=== PATIENT | female | born 2000 | race African-American/Black ===

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

== ENCOUNTER 2020-03-23 12:25 | Emergency (ER) | payer MEDICAID, OTHER ==
[~2020-03-23] VITALS: Ht 154.9 cm; Wt 75.0 kg
--- NOTE | 2020-03-23 12:38 | PHYS DOC ---
Past Medical History Past Medical History: No Pertinent History Past Surgical History: No Surgical History Smoking Status: Current Every Day Smoker Alcohol Use: None Drug Use: Marijuana General Adult EDM: Chief Complaint: GENERALIZED BODY ACHES HPI: HPI: Patient is a 19 year old female who presents with complaints that her employer sent her here to have a Covid test done and a work excuse stating that she can return to regular work. Patient states that over the last couple of days she has had some generalized body aches with a dry cough stating she felt just a little ill however not ill enough to be seen by a physician. Patient states that her employer became concerned because she was coughing at work and sent her home so that she could obtain a medical evaluation. Patient states that she has not been in contact with anybody that has a Covid 19 virus as far she is aware of, patient denies any recent fevers headaches sore throat new loss of taste or new loss of smell nausea vomiting diarrhea congestion or runny nose. Patient states her only symptoms are generalized body aches with a nonproductive cough for the past 2 days. Patient denies any pain with her cough, denies any shortness of breath, denies any chest pains. Patient denies fever or chills, any vision changes, any abdominal pains, denies urinary problems or STI concerns. Patient denies any pain in her back or pain in her joints, however states that she just feels overall a little achy. Patient states she is unable to rate her pain on a 1-10 pain scale as she describes that she is not really having pain and only is having an achy feeling. Patient denies any rashes to her skin's, any headaches or sensory changes. Patient denies any increased urination or increased thirst. Patient denies any swelling of her glands. Patient denies any recent depressions or anxieties denies homicidal or suicidal ideation. Patient states that no one else living at her home has the same symptoms that she. Patient states that her is feeling fine, and her [id number] child has no symptoms or does not appear ill to her. Patient states that the reason she is here today is to obtain a work note stating that she is okay and can return back to regular work. Review of Systems: Review of Systems: Constitutional: Denies fever or chills. Complains of generalized body aches Eyes: Denies change in visual acuity. HENT: Denies nasal congestion or sore throat. Respiratory: Reports a dry nonproductive cough, denies shortness of breath or any difficulties breathing. Cardiovascular: Denies chest pain or edema. GI: Denies abdominal pain, nausea, vomiting, constipation or diarrhea. : Denies dysuria. Denies STI concerns Musculoskeletal: Denies back pain or joint pain. Integument: Denies rash. Neurologic: Denies headache, focal weakness or sensory changes. Endocrine: Denies polyuria or polydipsia. Lymphatic: Denies swollen glands. Psychiatric: Denies depression or anxiety. Denies homicidal or suicidal ideation. Heart Score: Risk Factors: Risk Factors: DM, Current or recent (<one month) smoker, HTN, HLP, family history of CAD, obesity. Risk Scores: Score 0 - 3: 2.5% MACE over next 6 weeks - Discharge Home Score 4 - 6: 20.3% MACE over next 6 weeks - Admit for Clinical Observation Score 7 - 10: 72.7% MACE over next 6 weeks - Early Invasive Strategies Current Medications: Patient states she does not take any prescription medications at home. Patient states she occasionally takes [id number] Tylenol and/or ibuprofen. Patient states she has not taken any medications for the past few weeks. Allergies: Allergies: Allergies Coded Allergies Type Severity Reaction Last Updated Verified No Known Drug Allergies 06/07/15 No Physical Exam: PE: Constitutional: Well developed, well nourished, no acute distress, non-toxic appearance. HENT: Normocephalic, atraumatic, bilateral external ears normal, oropharynx moist, no oral exudates, nose normal. Eyes: PERRLA, EOMI, conjunctiva normal, no discharge. Neck: Normal range of motion, no tenderness, supple, no stridor. Cardiovascular:Heart rate regular rhythm, no murmur, heart sounds S1-S2 auscultation. Lungs & Thorax: Bilateral breath sounds clear to auscultation all lung nolen. Abdomen: Bowel sounds normal, soft, no tenderness, no masses, no pulsatile masses. Skin: Warm, dry, no erythema, no rash. Back: No tenderness, no CVA tenderness. Extremities: No tenderness, no cyanosis, no clubbing, ROM intact, no edema. Neurologic: Alert and oriented X 3, normal motor function, normal sensory function, no focal deficits noted. Psychologic: Affect normal, judgement normal, mood normal. EKG: EKG: [] Radiology/Procedures: Radiology/Procedures: [] Course & Med Decision Making: Course & Med Decision Making Pertinent Labs and Imaging studies reviewed. (See chart for details) 19-year-old female presented to the emergency department requesting a work excuse to return to work. However patient states that she was sent home because they noticed she was having a cough, patient states that she was feeling some generalized body aches and had this cough for the past 2 days. Patient is requesting a note stating she does not have the COVID-19 virus and should return to regular work. Discussed with patient that we would obtain a COVID-19 test today. However the results would not be back for a couple of days. Patient would be given a work excuse saying that her Covid results are pending. Patient was given instructions on how to obtain her results. Patient's physical exam was negative not concerning for infectious process. Patient's lung sounds are clear to auscultation, patient did not cough during physical examination. Patient's vital signs taken during physical examination were and oral temp of 98.1, heart rate was 65 per palpation, O2 saturation 100%, respirations 16 and unlabored, blood pressure taken on the right upper extremity via noninvasive blood pressure machine was 109/63. Discussed with patient concerns for viral syndrome, patient was amendable to obtaining a Covid 19 virus test along with a flu swab. Patient will be discharged home, discussed with patient taking [id number] Tylenol and/or Motrin for generalized aches pains and fever. Patient is return to the emergency department for worsening symptoms or other concerns. Patient had no further questions or concerns. Patient discharged home without incident. Dragon Disclaimer: Dragon Disclaimer: This electronic medical record was generated, in whole or in part, using a voice recognition dictation system. Departure Departure Impression: Primary Impression: Person under investigation for COVID-19 Additional Impression: Viral syndrome Disposition: 01 DC HOME SELF CARE/HOMELESS Condition: GOOD Referrals: NO PCP (PCP) Patient Instructions: Viral Syndrome Additional Instructions: You have been tested for or diagnosed with COVID-19. It is an infection caused by a new type of coronavirus. COVID-19 will cause cold-like or mild flu symptoms in most. It can cause more severe symptoms like problems breathing in some. There is no treatment for COVID-19. The body will clear the infection over time. Self-care will help to ease discomfort. Steps to Take: Self-Care Rest as needed. Healthy habits may help you feel better. Steps include: Choose healthy foods including fruits and vegetables. Drink water throughout the day. Get plenty of sleep each night. If you smoke, try to quit. It may ease breathing. Avoid alcohol. Keep Others Healthy The virus can spread to others. Droplets are released every time you sneeze or cough. The droplets can get into the mouth, nose, or eyes of people near you and lead to infection. To lower the chances of spreading COVID-19 to others: Stay at home until your doctor has said it is safe to leave. If you tested positive this will mean staying isolated until both of the following are true: At least 7 days have passed since the start of illness. You are free of fever for at least 72 hours without the use of medicine. During this time: - Avoid public areas, events, or transportation. Do not return to work or school until your doctor has said it is safe to do so. - Call ahead if you need to go to a medical center. Let them know you may have COVID-19. It will help them guide you where to go. They may also ask you to wear a facemask when you come to the office. - If you call for emergency medical services, let them know you may have COVID- 19. While at home: - Try to avoid close contact with others. Stay about 6 feet away. - If possible, spend most of your time in a separate room from others. - Use a face mask if you will be in close contact with others such as sharing a room or vehicle. - Have someone wipe down common surfaces in the home. Use household compressed gas tester every day on areas like doorknobs, counters, or sinks. - Cough or sneeze into a tissue. Throw the tissue away right after use. If a tissue is not available, cough or sneeze into your elbow. - Wash your hands often. Wash them after sneezing or coughing. Use soap and water and wash for at least 20 seconds. Alcohol based hand drain cleaner plumber can be used if soap and water is not available. - Do not prepare food for others. Avoid sharing personal items like forks, spoons, or toothbrushes. - Avoid close contact with pets while you are sick. There is no evidence of the virus passing to pets. This is a safety step until more is known about this virus. Isolation can be frustrating. Social interaction can help. Keep in touch with friends and family through phone and tech options. You can still interact with others in your home, just keep a safe distance of about 6 feet. Follow-up: Your doctors office will check in with you to see if there are any changes in your health. You may be asked to keep track of symptoms to share with them. They will also let you know when you are clear to be in public again. Problems to Look Out For: Contact your doctor if your recovery is not going as you expect. Get emergency care if you have problems such as: - Trouble breathing - Nonstop chest pain or pressure - Changes in awareness, confusion, or problems waking - Lips or face have bluish color - Worsening of symptoms If you think you have an emergency, call for emergency medical services right away. As taken from [employer] I have given a work excuse for 2 days pending the Covid result, if positive our infectious disease department will contact you at the phone number you left with registration, if negative you will not be contacted, you can contact medical records here at [facility] to obtain your Covid test results. Continue to use Tylenol and/or Motrin for generalized body aches and viral syndrome symptoms. Return to the emergency department for worsening symptoms or other concerns. AMY TAVARES APRN Mar 23, 2020 12:38
[2020-03-23 13:09] VITALS: BP 118/69
[2020-03-23 13:45] LABS: INFLUENZA A PATIENT NEGATIVE (NEGATIVE); INFLUENZA B PATIENT NEGATIVE (NEGATIVE)
--- NOTE | 2020-03-25 10:33 | NUR ---
IP: Attempted to call test results. No answer. Left a voicemail to return the call.
== END 2020-03-23 13:16 | disposition home or self-care (01) ==
LOC: ER 12:25
DX: B34.9 Viral infection, unspecified (principal); Z20.828 Contact with and (suspected) exposure to other viral communicable diseases; F17.200 Nicotine dependence, unspecified, uncomplicated
CPT/HCPCS: 87804; 99283; C9803; U0003

== ENCOUNTER 2020-04-19 15:47 | Emergency (ER) | payer OTHER ==
[~2020-04-19] VITALS: Ht 154.9 cm; Wt 58.1 kg
[2020-04-19 16:40] VITALS: BP 116/80
[2020-04-19] MEDS ORDERED: PROCHLORPERAZINE 10 MG/2 ML VIAL. IV ONE (17:15)
[2020-04-19] MEDS ORDERED: IV NORMAL SALINE 1000ML BAG 1,000 ML IV ONE (17:15)
[2020-04-19] MEDS ORDERED: KETOROLAC 30 MG/ML VIAL. IVP ONE (17:15)
--- NOTE | 2020-04-19 17:18 | PHYS DOC ---
Past Medical History Past Medical History: No Pertinent History Past Surgical History: No Surgical History Smoking Status: Current Every Day Smoker Alcohol Use: None Drug Use: Marijuana General Adult EDM: Chief Complaint: FEVER HPI: HPI: Patient is a 19 year old female who presents with fever, epigastric pain, nausea, vomiting, headache last night. States she has not taken any medication. She rates her headache and her dull aching abdominal pain a 10 out of 10. Denies any past medical history but she is a smoker. She does use marijuana. Patient denies chest pain, cough, shortness of air, diarrhea, constipation, urinary symptoms, back pain, dizziness, vision changes, focal weakness, numbness or tingling. Review of Systems: Review of Systems: Constitutional: + fever or chills. [] Eyes: Denies change in visual acuity. [] HENT: Denies nasal congestion or sore throat. [] Respiratory: Denies cough or shortness of breath. [] Cardiovascular: Denies chest pain or edema. [] GI: +abdominal pain, +nausea, +vomiting, bloody stools or diarrhea. [] : Denies dysuria. [] Musculoskeletal: Denies back pain or joint pain. [] Integument: Denies rash. [] Neurologic: + headache, denies focal weakness or sensory changes. [] Endocrine: Denies polyuria or polydipsia. [] Lymphatic: Denies swollen glands. [] Psychiatric: Denies depression or anxiety. [] Heart Score: Risk Factors: Risk Factors: DM, Current or recent (<one month) smoker, HTN, HLP, family history of CAD, obesity. Risk Scores: Score 0 - 3: 2.5% MACE over next 6 weeks - Discharge Home Score 4 - 6: 20.3% MACE over next 6 weeks - Admit for Clinical Observation Score 7 - 10: 72.7% MACE over next 6 weeks - Early Invasive Strategies Current Medications: Current Medications Medications (Trade) Dose Ordered Sig/Taye Start Time Stop Time Status Last Admin Dose Admin Ketorolac Tromethamine (Toradol 30mg Vial) 30 mg 1X ONCE 04/19/20 17:15 04/19/20 17:16 Prochlorperazine Edisylate (Compazine) 10 mg 1X ONCE 04/19/20 17:15 04/19/20 17:16 Sodium Chloride 1,000 ml @ 1,000 mls/hr 1X ONCE 04/19/20 17:15 04/19/20 18:14 Allergies: Allergies: Allergies Coded Allergies Type Severity Reaction Last Updated Verified No Known Drug Allergies 06/07/15 No Physical Exam: PE: Constitutional: Well developed, well nourished, no acute distress, non-toxic appearance. [] HENT: Normocephalic, atraumatic, bilateral external ears normal, oropharynx moist, no oral exudates, nose normal. [] Eyes: PERRLA, EOMI, conjunctiva normal, no discharge. [] Neck: Normal range of motion, no tenderness, supple, no stridor. [] Cardiovascular:Heart rate regular rhythm, no murmur [] Lungs & Thorax: Bilateral breath sounds clear to auscultation [] Abdomen: Bowel sounds normal, soft, epigastric tenderness, no masses, no pulsatile masses. [] Skin: Warm, dry, no erythema, no rash. [] Back: No tenderness, no CVA tenderness. [] Extremities: No tenderness, no cyanosis, no clubbing, ROM intact, no edema. [] Neurologic: Alert and oriented X 3, normal motor function, normal sensory function, no focal deficits noted. [] Psychologic: Affect normal, judgement normal, mood normal. [] Current Patient Data: Vital Signs: Vital Signs Date Time Temp Pulse Resp B/P (MAP) Pulse Ox O2 Delivery O2 Flow Rate FiO2 04/19/20 16:40 98.6 115 16 116/80 (92) 97 Room Air 98.6 EKG: EKG: [] Radiology/Procedures: Radiology/Procedures: [] Course & Med Decision Making: Course & Med Decision Making Pertinent Labs and Imaging studies reviewed. (See chart for details) See HPI. Alert and oriented x4. Ambulatory with a steady gait. Abdomen soft but tender to the epigastric area. Speaks in full complete sentences. Skin pink warm and dry. Vital signs within normal limits. Afebrile. Patient is given normal saline, Toradol, Compazine in the ED. Patient refused all medications and all labs. Patient states to nurse she just wants the Covid test and wants to go home. Patient left AMA per the nurse. Patient stable and in no distress. Patient left before practitioner was able to speak with her. [] Dragon Disclaimer: Dragon Disclaimer: This electronic medical record was generated, in whole or in part, using a voice recognition dictation system. Departure Departure Impression: Primary Impression: Left against medical advice Additional Impressions: Abdominal pain with vomiting Person under investigation for COVID-19 Disposition: 07 AMA/ELOPED/LWBS Condition: STABLE Referrals: NO PCP (PCP) RAN MCCRAY APRN Apr 19, 2020 17:18
[2020-04-19 17:20] LABS: BILIRUBIN,URINE NEGATIVE (NEG); CLARITY,URINE CLEAR; COLOR,URINE YELLOW; NITRITE,URINE POSITIVE (NEG); PROTEIN,URINE NEGATIVE (NEG-TRACE); UROBILINOGEN,URINE 0.2 mg/dL (0.2 mg/dL)
[2020-04-19 17:23] LABS: U PREG PATIENT NEGATIVE (NEG)
[2020-04-19 17:25] LABS: BACTERIA,URINE MANY /HPF (0-FEW); RBC,URINE 0 /HPF (0-2)
--- NOTE | 2020-04-22 12:05 | VNOTE ---
CALL BACK NOTE CALL BACK Microbiology 04/19/20 Urine Culture - Final, Complete 04/19/20 Antimicrobic Susceptibility - Final, Complete Called patient regarding her UA culture, left a voicemail CHI HASSAN APRN Apr 22, 2020 12:05
== END 2020-04-19 17:32 | disposition left against medical advice (07) ==
LOC: ER 15:47
DX: R10.13 Epigastric pain (principal); R11.2 Nausea with vomiting, unspecified; R51.9 Headache, unspecified; F17.200 Nicotine dependence, unspecified, uncomplicated
CPT/HCPCS: 81001; 81025; 87077; 87086; 87186; 99283; 99285

== ENCOUNTER → 2021-05-08 | Outpatient (CLI) | payer OTHER ==
--- NOTE | 2021-05-08 15:56 | RAD ---
Study: US OB >14 WEEKS Clinical Indication: Dating. Comparison: None. Technique: Multiple grayscale images, color Doppler, and M-mode images of the uterus are obtained. Findings: Single live intrauterine gestation in cephalic presentation. The placenta is anterior in location. Th e inferior margin approaches but does not appear to cover the internal cervical os. Amniotic fluid vo lume is appropriate. Closed cervic measuring 4 cm in length. Biometrical data: BPD = 3.81 cm for 17 weeks 4 days HC = 14.01 cm for 17 weeks 2 days AC = 10.72 cm for 16 weeks 4 days FL = 2.33 cm for 17 weeks 0 days CI ratio = 88.4 HC/AC ratio = 1.31 FL/HC ratio = 16.6 FL/AC ratio = 21.7 The estimated sonographic gestational age is 17 weeks 1 day for a delivery date of 10/15/2021. The est imated date of delivery provided by the last menstrual period is 10/05/2021. Estimated weight o f 173 grams +/- 26. 4 chamber heart with cardiac activity. The heart rate of 141 beats per minute. Bilateral upper and lower extremities are identified. Three-vessel cord with cord insertion visualized. stomach and urinary bladder are identified. Both kidneys are seen. The spine and brain are unremarkable. Impression: 1. Single live intrauterine gestation with estimated sonographic gestational age of 17 weeks 1 day c orresponding to a delivery date of 10/15/2021. Estimated delivery date by last menstrual period of 09/21. weight estimate of 173 g +/- 26. Estimated gestational age by ultrasound lagging 10 day s behind that estimated by last menstrual period. 2. Cephalic presentation at this time. Anterior marginal placenta which approaches but does not appe ar to cover the internal cervical os. Within normal limits amniotic fluid volume. Closed cervix measu ring 4 cm in length. 3. No malformation is identified but gestational age is somewhat early for a full anatomy scan . Consider follow-up after 20 weeks at which time the placenta could be further evaluated for expecte d migration away from the os. Electronically signed by: RAMSEY ASIF MD (05/08/2021 3:54 PM) [id number]
== END ==
LOC: US 09:52
PROVIDERS: ATTEND Obstetrics & Gynecology
DX: Z34.92 Encounter for supervision of normal pregnancy, unspecified, second trimester (principal); Z3A.17 17 weeks gestation of pregnancy
CPT/HCPCS: 76805